=== PATIENT | female | born 1955 | race Caucasian/White ===

== ENCOUNTER 2017-06-07 14:20 | Emergency (ER) | payer OTHER ==
--- NOTE | 2017-06-07 16:02 | ER Document Report ---
ED Medical Screen (RME) - General Chief Complaint: Shortness Of Breath Stated Complaint: BREATHING PROBLEMS Time Seen by Provider: 06/07/17 15:57 Mode of Arrival: Ambulatory Information source: Patient Notes: 62-year-old female presenting with complaints of right shoulder blade pain began 2 days ago. Patient states she woke up with this pain. Patient states yesterday she also noticed shortness of breath, low back pain, and chest pain. TRAVEL OUTSIDE OF THE [place] IN LAST 30 DAYS: No - Related Data Allergies/Adverse Reactions: aspirin [Aspirin] Allergy (Verified 10/26/12 18:48) ibuprofen [Ibuprofen] Allergy (Verified 10/26/12 18:48) crabs Allergy (Uncoded 10/26/12 18:48) Past Medical History - General Information source: [facility] - Social History Chew tobacco use (# tins/day): No Frequency of alcohol use: None Drug Abuse: None Pulmonary Medical History: Reports: Hx Asthma, Hx COPD Renal/ Medical History: Denies: Hx Peritoneal Dialysis - Immunizations Hx Diphtheria, Pertussis, Tetanus Vaccination: No Review of Systems - Review of Systems Cardiovascular: See HPI, Chest pain Respiratory: See HPI, Short of breath Musculoskeletal: See HPI, Back pain - right shoulder blade Physical Exam - Vital signs Vitals: Temp Pulse Resp BP Pulse Ox 98.5 F 75 14 129/75 H 96 06/07/17 14:47 06/07/17 14:47 06/07/17 14:47 06/07/17 14:47 06/07/17 14:47 - HEENT Head: Normocephalic, Atraumatic Eyes: Normal Conjunctiva: Normal Cornea: Normal - Respiratory Respiratory status: No respiratory distress Chest status: Nontender Breath sounds: Normal - Cardiovascular Rhythm: Regular Heart sounds: Normal auscultation Murmur: No - Abdominal Inspection: Obese - Back Back: Normal, Nontender Course - Vital Signs Vital signs: Temp Pulse Resp BP Pulse Ox 98.5 F 75 14 129/75 H 96 06/07/17 14:47 06/07/17 14:47 06/07/17 14:47 06/07/17 14:47 06/07/17 14:47 - Laboratory Result Diagrams: 06/07/17 16:20 06/07/17 16:20 Laboratory results interpreted by me: 06/07/17 16:20 RDW 14.5 H Scribe Documentation - Scribe Written by William:: William Prado, 06/07/2017 [id number] acting as scribe for :: Jeanine
[2017-06-07 16:28] LABS: ABSOLUTE BASOPHILS # (AUTO) 0.1 10^3/uL (0.0-0.2); ABSOLUTE EOSINOPHILS # (AUTO) 0.3 10^3/uL (0.0-0.6); ABSOLUTE LYMPHOCYTES (AUTO) 2.2 10^3/uL (0.5-4.7); ABSOLUTE MONOCYTES (AUTO) 0.7 10^3/uL (0.1-1.4); ABSOLUTE NEUT (AUTO) 5.6 10^3/uL (1.7-8.2); BASOPHILS % (AUTO) 1.2 % (0-2); EOSINOPHILS % (AUTO) 2.9 % (0-6); HEMATOCRIT 43.1 % (36.0-47.0); HEMOGLOBIN 14.5 g/dL (12.0-15.5); LYMPHOCYTES % (AUTO) 24.6 % (13-45); MEAN CORPUSCULAR HEMOGLOBIN 28.7 pg (27.0-33.4); MEAN CORPUSCULAR HGB CONC 33.6 g/dL (32.0-36.0); MEAN CORPUSCULAR VOLUME 85 fl (80-97); MONOCYTES % (AUTO) 7.6 % (3-13); PLATELET COUNT 276 10^3/uL (150-450); RED BLOOD COUNT 5.05 10^6/uL (3.72-5.28); RED CELL DISTRIBUTION WIDTH 14.5 % (11.5-14.0); SEGMENTED NEUTROPHILS % (AUTO) 63.7 % (42-78); TOTAL CELLS COUNTED % (AUTO) 100 %; WHITE BLOOD COUNT 8.9 10^3/uL (4.0-10.5)
[2017-06-07 16:42] LABS: ALANINE AMINOTRANSFERASE 46 U/L (9-52); ALBUMIN 4.5 g/dL (3.5-5.0); ALKALINE PHOSPHATASE 89 U/L (38-126); ANION GAP 10 (5-19); ASPARTATE AMINO TRANSFERASE 23 U/L (14-36); BILIRUBIN,DIRECT 0.2 mg/dL (0.0-0.4); BILIRUBIN,TOTAL 0.4 mg/dL (0.2-1.3); BLOOD UREA NITROGEN 18 mg/dL (7-20); CALCIUM 9.8 mg/dL (8.4-10.2); CARBON DIOXIDE 28 mmol/L (22-30); CHLORIDE 104 mmol/L (98-107); CREATINE KINASE 47 U/L (30-135); GLUCOSE 85 mg/dL (75-110); MAGNESIUM 2.2 mg/dL (1.6-2.3); POTASSIUM 4.7 mmol/L (3.6-5.0); SODIUM 142.1 mmol/L (137-145); TOTAL PROTEIN 7.2 g/dL (6.3-8.2)
--- NOTE | 2017-06-07 16:53 | RADIOLOGY REPORT (SQ) ---
EXAM DESCRIPTION: CHEST PA/LAT COMPLETED DATE/TIME: 06/07/2017 4:40 pm REASON FOR STUDY: Chest pain COMPARISON: None. EXAM PARAMETERS: NUMBER OF VIEWS: two views TECHNIQUE: Digital Frontal and Lateral radiographic views of the chest acquired. RADIATION DOSE: NA LIMITATIONS: none FINDINGS: LUNGS AND PLEURA: No opacities, masses or pneumothorax. No pleural effusion. MEDIASTINUM AND HILAR STRUCTURES: No masses or contour abnormalities. HEART AND VASCULAR STRUCTURES: Heart normal size. No evidence for failure. BONES: No acute findings. HARDWARE: None in the chest. OTHER: No other significant finding. IMPRESSION: NO SIGNIFICANT RADIOGRAPHIC FINDING IN THE CHEST. TECHNICAL DOCUMENTATION: JOB ID: [id number] [email or web address] All Rights Reserved
[2017-06-07 16:54] LABS: NT PRO BNP 39 pg/mL (5-900)
[2017-06-07 16:57] LABS: CREATINE KINASE MB < 0.22 ng/mL (<4.55); TROPONIN I < 0.012 ng/mL
[2017-06-07] MEDS ORDERED: LIDOCAINE 5% (700 MG) TRANSDERMAL ADH..PATCH TP ONE (18:49)
[2017-06-07] MEDS ORDERED: ACETAMINOPHEN 325 MG TABLET PO ONE (18:49)
--- NOTE | 2017-06-07 18:53 | ER Document Report ---
ED General - General Chief Complaint: Shortness Of Breath Stated Complaint: BREATHING PROBLEMS Time Seen by Provider: 06/07/17 15:57 Mode of Arrival: Ambulatory Notes: Patient is a 8-year-old female who presents with 2 days of progressively worsening pain around her right periscapular region, right trapezius as well as left trapezius. She states that the pain is a dull, aching, throbbing pain worsened by movement and coughing. She also notes that it is worsened by deep breath. She states that she thought she had strained a muscle on the pain got worse she wanted to be evaluated. She states she is also concerned that the pain intermittently seem to radiate into her right chest wall. She denies any associated shortness of breath, nausea, vomiting or diaphoresis. She denies any history of similar symptoms in the past. She has not tried anything for relief of her pain. She has not seen a primary care doctor. She denies any history of medical problems in the past and no history of cardiac disease. No history of DVT or pulmonary embolus. She does not take any form of supplemental estrogen. TRAVEL OUTSIDE OF THE [place] IN LAST 30 DAYS: No - Related Data Allergies/Adverse Reactions: aspirin [Aspirin] Allergy (Verified 10/26/12 18:48) ibuprofen [Ibuprofen] Allergy (Verified 10/26/12 18:48) crabs Allergy (Uncoded 10/26/12 18:48) Past Medical History - General Information source: Patient, [facility] Records - Social History Smoking Status: Former Smoker Chew tobacco use (# tins/day): No Frequency of alcohol use: None Drug Abuse: None Lives with: Spouse/Significant other Family History: Reviewed & Not Pertinent Patient has suicidal ideation: No Patient has homicidal ideation: No Pulmonary Medical History: Reports: Hx Asthma, Hx COPD Renal/ Medical History: Denies: Hx Peritoneal Dialysis - Immunizations Hx Diphtheria, Pertussis, Tetanus Vaccination: No Review of Systems - Review of Systems Notes: Constitutional: Negative for fever. HENT: Negative for sore throat. Eyes: Negative for visual changes. Cardiovascular: Negative for chest pain. Respiratory: Negative for shortness of breath. Gastrointestinal: Negative for abdominal pain, vomiting or diarrhea. Genitourinary: Negative for dysuria. Musculoskeletal: Positive for back pain and trapezius pain Skin: Negative for rash. Neurological: Negative for headaches, weakness or numbness. 10 point ROS negative except as marked above and in HPI. Physical Exam - Vital signs Vitals: Temp Pulse Resp BP Pulse Ox 98.5 F 75 14 129/75 H 96 06/07/17 14:47 06/07/17 14:47 06/07/17 14:47 06/07/17 14:47 06/07/17 14:47 Interpretation: Normal Notes: PHYSICAL EXAMINATION: GENERAL: Well-appearing, well-nourished and in no acute distress. HEAD: Atraumatic, normocephalic. EYES: Pupils equal round and reactive to light, extraocular movements intact, sclera anicteric, conjunctiva are normal. ENT: nares patent, oropharynx clear without exudates. Moist mucous membranes. NECK: Normal range of motion, supple without lymphadenopathy LUNGS: Breath sounds clear to auscultation bilaterally and equal. No wheezes rales or rhonchi. HEART: Regular rate and rhythm without murmurs ABDOMEN: Soft, nontender, normoactive bowel sounds. No guarding, no rebound. No masses appreciated. Back: Pain on palpation of the lower periscapular region on the right as well as the right trapezius. EXTREMITIES: Normal range of motion, no pitting or edema. No cyanosis. NEUROLOGICAL: No focal neurological deficits. Moves all extremities spontaneously and on command. PSYCH: Normal mood, normal affect. SKIN: Warm, Dry, normal turgor, no rashes or lesions noted. Course - Re-evaluation Re-evalutation: 06/07/17 18:50 Patient presents with 2 days of right periscapular pain radiating into the right trapezius and right sternocleidomastoid are consistent with a musculoskeletal strain. The pain is completely reproducible on palpation of the area as well as movement of the right upper extremity and right back. Her clinical history is not consistent with ACS, an acute pulmonary embolus, or aortic dissection. Troponin is normal. EKG with some T-wave flattening in the anterior leads but no ischemic changes. Patient does not have any past medical history to suggest an increased risk for ACS. Chest x-ray is clear without evidence of pneumothorax, acute infiltrate, rib fractures or widened mediastinum. Will prescribe topical Voltaren gel as patient's allergic to ibuprofen is stomach upset, recommend heat and lidocaine to the affected area as well as close outpatient follow-up. At this time will discharge with return precautions and follow-up recommendations. Verbal discharge instructions given a the bedside and opportunity for questions given. Medication warnings reviewed. Patient is in agreement with this plan and has verbalized understanding of return precautions and the need for primary care follow-up in the next 24-72 hours. - Vital Signs Vital signs: Temp Pulse Resp BP Pulse Ox 98.5 F 75 17 134/82 H 97 06/07/17 14:47 06/07/17 14:47 06/07/17 19:01 06/07/17 19:01 06/07/17 19:01 - Laboratory Result Diagrams: 06/07/17 16:20 06/07/17 16:20 Laboratory results interpreted by me: 06/07/17 16:20 RDW 14.5 H - Diagnostic Test Radiology reviewed: Image reviewed, Reports reviewed Radiology results interpreted by me: 06/07/17 18:51 Chest x-ray: No acute infiltrate or pneumothorax - EKG Interpretation by Me Additional EKG results interpreted by me: 06/07/17 18:51 Normal sinus rhythm. Rate 72. No ST elevations or depressions. QTC is 460. T -wave flattening in 1 and 2 Discharge - Discharge Clinical Impression: Upper back pain on right side, Chest wall discomfort, Musculoskeletal strain Condition: Good Disposition: HOME, SELF-CARE Additional Instructions: Your labs and x-ray are normal today. Your history and evaluation does not suggest that there is anything wrong with her heart or lungs that is causing her symptoms today. Your symptoms are likely related to a musculoskeletal strain of your upper right back. Apply the topical Voltaren gel to the affected area up to 3 times daily as needed for pain. You may also use topical lidocaine that is sold [id number]. Apply heat to the area as often as you are able. Your symptoms should resolve in the next 2-3 weeks. Please return to emergency department immediately if you have worsening of your chest pain, shortness of breath, vomiting, or you become unable to exert yourself due to pain or difficulty breathing. Please also return if you have any additional symptoms that are concerning to you. Prescriptions: Diclofenac Sodium [Voltaren] 100 gm TP TID PRN #100 gel..gram. PRN Reason:
[2017-06-07 19:03] VITALS: BP 134/82
--- NOTE | 2017-06-07 22:19 | EKG REPORT ---
SEVERITY:- BORDERLINE ECG - SINUS RHYTHM BORDERLINE LEFT AXIS DEVIATION BORDERLINE T ABNORMALITIES, ANTERIOR LEADS : Confirmed by: Margaret Bello 07-Jun-2017 22:18:46
== END 2017-06-07 19:15 | disposition home or self-care (01) ==
LOC: ER 14:20
DX: S29.012A Strain of muscle and tendon of back wall of thorax, initial encounter (principal); M54.6 Pain in thoracic spine; R07.89 Other chest pain; R06.02 Shortness of breath; X58.XXXA Exposure to other specified factors, initial encounter
CPT/HCPCS: 36415; 71046; 80053; 82550; 82553; 83735; 83880; 84484; 85025; 93005; 93010; 99285